=== PATIENT | male | born 1930 | race Caucasian/White ===

== ENCOUNTER → 2017-06-14 | Day surgery (SDC) | payer OTHER, MEDICARE ==
[~2017-06-14] VITALS: Ht 180.3 cm; Wt 91.2 kg
[~2017-06-14] MED LIST: BUDESONIDE0.5 MG/21 INH/SOL; CO Q-10200 MG PO; COQ-10100 MG PO; LEVOTHYROXINE75 MCG PO; LOSARTAN POTASS50 M1 PO; MAGNESIUM250 M2 PO; MUCINEX DM ER1 EAC1 PO; OMEPRAZOLE20 M3 PO; OMEPRAZOLE40 M1 PO; PERCOCET 325 MG1 TA2 PO; PRAVACHOL40 M1 PO; PROTONIX40 M3 PO; SERTRALINE HCL50 MG PO; ST. JOSEPH ASPI81 MG PO; STIOLTO RESPIMAT4 GM INH; TAMSULOSIN HCL0.4 M1 PO; TOPROL XL25 M1 PO; TOPROL XL50 M1 PO; TRAMADOL HCL50 M1 PO; TRAZODONE HCL50 M1 PO; VITAMIN D31000 UNI2 PO; XANAX0.25 M1 PO
--- NOTE | 2017-06-14 19:07 | Operative Report ---
Operative/Inv Procedure Report Surgery Date: 06/14/17 Name of Procedure: UROLIFT PROSTATE IMPLANTS X 4. CYSTOSCOPY Pre-Operative Diagnosis: BPH WITH INTERMITTENT RETENTION: PROSTATE 2.5 CM LONG, WITH 39GRM ON US. Post-Operative Diagnosis: SAME Estimated Blood Loss: scant Surgeon/Chemical Plant Operator: Dannie Melendez MD Anesthesia: moderate sedation Implants: 4 UROLIFT IMPLANTS. Drains: NONE Specimens: NONE Complications: NONE Operative/Procedure Note Note: The patient was taken to the operating room and placed on the OR table in supine position. Timeout was performed, with the patient awake, in order to confirm correct identity, procedure, antibiotics, anesthesia, and other pertinent perioperative information. After adequate anesthesia and antibiotics, the patient was then placed lithotomy stirrups, draped and prepped in the usual surgical fashion. A 20 Vincentian cystoscope was inserted into the bladder without significant difficulty, noting the bilateral obstructing lobes of the prostate, with small middle lobe. The cystoscope bridge was replaced with urolift device. The first treatment site was the patient's left side approximately 1.5 cm distal to the bladder neck. The distal tip of the delivery device was then angled laterally, approximately 20 at this position to compress the lateral lobe. The trigger was pulled, thereby deploying a needle containing the implant through the prostate. The needle was then retracted, allowing one end of the implant to be delivered to the capsule surface of the prostate. The implant was then tensioned to assure capsular sealing and removal of slack monofilament. The device was then angled back toward midline and slowly advanced proximally until cystoscopic verification of the monofilament being centered in the delivery bay. The urethral end piece was then affixed to the monofilament, thereby tailoring the size of the implant. Excess filament was then severed. The delivery device was then readvanced into the bladder. The delivery device was then replaced with cystoscope, and bridge, and implant location and opening effect was confirmed cystoscopically. The same procedure was then repeated on the right side, just distal to the right bladder neck. And 2 additional implants were delivered just proximal to the vera montanum, again one on the right and one in the left side of the prostate following the similar technique. A total of 4 implants were placed in the patient's prostate in order to perform an open channel. A final cystoscopy was conducted to inspect the location and stated each implant, and second to confirm the presence of a continuous anterior channel present through the prostatic urethra with irrigation flow turned off. The bladder was then filled with 150 mL of irrigation fluid, and the cystoscope was removed. A 20 Vincentian Klein was inserted without difficulty, draining clear fluid. patient tolerated procedure well All sponge needle and instrument count were correct at the end of the case. The patient tolerated the procedure well, and taken to the recovery room in satisfactory condition. Findings: DC HOME POST VOID WITHOUT KLEIN. Discharge Disposition: PACU CC: Dannie Melendez MD
== END ==
LOC: STS 06-02 07:00
DX: N40.1 Benign prostatic hyperplasia with lower urinary tract symptoms (principal); R33.8 Other retention of urine; N32.0 Bladder-neck obstruction; Z85.51 Personal history of malignant neoplasm of bladder; I10 Essential (primary) hypertension; J44.9 Chronic obstructive pulmonary disease, unspecified; Z87.891 Personal history of nicotine dependence; K21.9 Gastro-esophageal reflux disease without esophagitis
CPT/HCPCS: 93005; 93010; J0131; L8699